=== PATIENT | male | born 1940 | race Caucasian/White ===

== ENCOUNTER 2019-08-03 10:21 | Observation (INO) ==
--- NOTE | 2019-08-03 11:46 | ED.PDOC ---
General ED Provider: Dr. RAVIN LEY Chief Complaint: Fall Stated Complaint: Lost balance and fell in the floor. Was there for approx. 4 hrs before caregiver arrived Denies complaints of hip or back pain Is thirsty Time Seen by Physician: 11:35 Mode of Arrival: Stretcher Information Source: Patient and EMT Exam Limitations: Clinical condition Primary Care Provider: LENY LAMA Nursing and Triage Documentation Reviewed and Agree: Yes Does patient meet sepsis criteria?: No System Inflammatory Response Syndrome: Not Applicable Sepsis Protocol: For patient's 13 years and over: Temp is 96.8 and below OR 101 and greater Pulse >90 BPM Resp >20/minute Acutely Altered Mental Status Are patient's symptoms suggestive of a new infection, such as: -Pneumonia -Skin, Soft Tissue -Endocarditis -UTI -Bone, Joint Infection -Implantable Device -Acute Abdominal Infection -Wound Infection -Meningitis -Blood Stream Catheter Infection -Unknown Miscellaneous Complaint Exam Physical Examination Complaint/Exam Onset/Duration: 4 hr Symptoms Are: Still present Timing: Constant Episodes Lasting: Hours Initial Severity: Moderate Current Severity: Moderate Location: Renal functon diminished with dehydration/Falling and weak Character: Decr LOC Aggravating: Prolonged down time Alleviating: IV fluids Associated Signs and Symptoms: Dry Skin/decr LOC Differential Diagnoses: Renal Insufficiency.Dehydration Review of Systems Review Of Systems Constitutional: Reports Weakness Eyes: Reports No symptoms Ears, Nose, Mouth, Throat: Reports No symptoms Respiratory: Reports No symptoms Cardiac: Reports No symptoms GI: Reports No symptoms : Reports No symptoms Musculoskeletal: Reports Back pain Skin: Reports No symptoms Neurological: Reports Depressed Endocrine: Reports No symptoms Hematologic/Lymphatic: Reports No symptoms All Other Systems: Reviewed and Negative [facility] Medical History (Updated 08/03/19 @ 16:47 by PINEDA DAVIS RN) Bronchitis (Acute) Congestive heart disease (Acute) History of coronary artery bypass graft (Acute) Hypertension (Acute) Lumbar disc disease (Acute) Pneumonia (Acute) Pneumothorax (Acute) Family History (Updated 08/03/19 @ 16:33 by PIENDA DAVIS RN) Father Cancer of bone Diabetes Mother Diabetes Brother Cancer Social History (Updated 08/03/19 @ 16:41 by PINEDA DAVIS RN) Do you feel safe at home: Yes History of physical abuse: No History of emotional abuse: No History of sexual abuse: No Smoking and tobacco status: Current some day smoker Tobacco type: cigarettes Years smoked: 61 Tobacco: How many years used: 61 (stopped smoking a week ago) Smoking status stop date: 07/27/19 Quit status: has quit before Alcohol intake: former Substance use type: does not use Special olive needs: No Are you now , , , , never or living with a partner?: Social isolation score (0-1 are the most socially isolated patients): 0 Household members: none Housing: apartment Marital status: D Lives independently: Yes Highest education level completed: some college, no degree service: No intermediate: No Current occupational status: retired Pets and animals: No History of recent travel: No Current gender identity: male Physical Exam Physical Exam Appearance: Ill-appearing Critical Care Note Critical Care Note Total Time (mins): 60 Course Course Hematology/Chemistry: 08/03/19 12:50 08/03/19 12:50 Orders, Labs, Meds: Lab Review 08/03/19 08/03/19 08/03/19 11:51 12:50 12:50 WBC 14.92 H RBC 4.71 Hgb 14.1 Hct 41.4 L MCV 87.9 MCH 29.9 MCHC 34.1 RDW Coeff of Kellie 13.7 Plt Count 274 Immature Gran % (Auto) 0.7 Neut % (Auto) 81.2 Lymph % (Auto) 8.3 L [place] % (Auto) 9.0 Eos % (Auto) 0.4 Baso % (Auto) 0.4 Immature Gran # (Auto) 0.1 Neut # (Auto) 12.1 H Lymph # (Auto) 1.2 [place] # (Auto) 1.4 Eos # (Auto) 0.1 Baso # (Auto) 0.1 PT INR Puncture Site R brach O2 Saturation 96.0 ABG pH 7.429 ABG pCO2 37.8 ABG pO2 81.0 L ABG HCO3 25 ABG Total CO2 26 ABG Base Excess 1 Sameer Test + O2 Delivery Device Ra FiO2 % 21.0 Sodium 136.6 Potassium 3.61 Chloride 101.1 Carbon Dioxide 26.9 Anion Gap 12.21 BUN 29.1 H Creatinine 1.88 H Estimated GFR (MDRD) 35.00 BUN/Creatinine Ratio 15.47 Glucose 116.6 H Lactic Acid Uric Acid 6.76 Calcium 9.20 Total Bilirubin 0.66 AST 41.0 ALT 16.7 Alkaline Phosphatase 78.0 Total Creatine Kinase 325.5 H CK-MB (CK-2) 2.840 H CK-MB (CK-2) % 0.8700 Troponin I 0.035 NT-Pro-B Natriuret Pep Total Protein 7.42 Albumin 4.18 Globulin 3.24 Albumin/Globulin Ratio 1.[address] [facility] 08/03/19 08/03/19 08/03/19 12:50 12:50 12:50 WBC RBC Hgb Hct MCV MCH MCHC RDW Coeff of Kellie Plt Count Immature Gran % (Auto) Neut % (Auto) Lymph % (Auto) [place] % (Auto) Eos % (Auto) Baso % (Auto) Immature Gran # (Auto) Neut # (Auto) Lymph # (Auto) [place] # (Auto) Eos # (Auto) Baso # (Auto) PT 21.9 H INR 2.34 Puncture Site O2 Saturation ABG pH ABG pCO2 ABG pO2 ABG HCO3 ABG Total CO2 ABG Base Excess Sameer Test O2 Delivery Device FiO2 % Sodium Potassium Chloride Carbon Dioxide Anion Gap BUN Creatinine Estimated GFR (MDRD) BUN/Creatinine Ratio Glucose Lactic Acid 0.87 Uric Acid Calcium Total Bilirubin AST ALT Alkaline Phosphatase Total Creatine Kinase CK-MB (CK-2) CK-MB (CK-2) % Troponin I NT-Pro-B Natriuret Pep Total Protein Albumin Globulin Albumin/Globulin Ratio Procalcitonin < 0.05 TSH 08/03/19 12:50 WBC RBC Hgb Hct MCV MCH MCHC RDW Coeff of Kellie Plt Count Immature Gran % (Auto) Neut % (Auto) Lymph % (Auto) [place] % (Auto) Eos % (Auto) Baso % (Auto) Immature Gran # (Auto) Neut # (Auto) Lymph # (Auto) [place] # (Auto) Eos # (Auto) Baso # (Auto) PT INR Puncture Site O2 Saturation ABG pH ABG pCO2 ABG pO2 ABG HCO3 ABG Total CO2 ABG Base Excess Sameer Test O2 Delivery Device FiO2 % Sodium Potassium Chloride Carbon Dioxide Anion Gap BUN Creatinine Estimated GFR (MDRD) BUN/Creatinine Ratio Glucose Lactic Acid Uric Acid 7.00 Calcium Total Bilirubin AST ALT Alkaline Phosphatase Total Creatine Kinase CK-MB (CK-2) CK-MB (CK-2) % Troponin I NT-Pro-B Natriuret Pep Pending Total Protein Albumin Globulin Albumin/Globulin Ratio Procalcitonin TSH 2.100 Orders Category Date Time Status [facility] ADMISSION 08/03/19 15:21 Active ABG DRAW REQUEST Routine CARDIO 08/03/19 11:52 Completed EKG-(ED ONLY) Stat CARDIO 08/03/19 11:06 Completed OXYGEN Routine CARDIO 08/03/19 11:50 Active TELEMETRY MONITORING TELE CARE 08/03/19 15:22 Active ABG Stat LAB 08/03/19 11:51 Completed BLOOD CULTURE (ED ONLY) Stat LAB 08/03/19 12:40 Received CBC W/ AUTO DIFF Stat LAB 08/03/19 12:50 Completed CMP [COMPREHENSIVE METABOLIC PANEL] Stat LAB 08/03/19 12:50 Completed CPK [CREATINE KINASE] Stat LAB 08/03/19 12:50 Completed LACTIC ACID Stat LAB 08/03/19 12:50 Completed PROCALCITONIN Stat LAB 08/03/19 12:50 Completed PT WITH INR Stat LAB 08/03/19 12:50 Completed TROPONIN I Stat LAB 08/03/19 12:50 Completed UA [URINALYSIS C & S IF INDICATED] Stat LAB 08/03/19 11:52 Uncollected URIC ACID Stat LAB 08/03/19 12:50 Completed URINALYSIS C & S IF INDICATED Stat LAB 08/03/19 13:46 Uncollected 0.9 % Sodium Chloride [Saline Flush] MEDS 08/03/19 11:50 Active 1 syr IVF PRN PRN Sodium Chloride 0.9% [Sodium Chloride] 1,000 ml MEDS 08/03/19 13:27 Discontinued IV ONCE CHEST, 1V AP ONLY Stat RADS 08/03/19 11:51 Completed Medications Generic Name Dose Route Start Last Admin Trade Name Freq PRN Reason Stop Dose Admin Aspirin 81 mg 08/04/19 08:00 Aspirin Ec PO DAILYWM [facility] Citalopram Hydrobromide 20 mg 08/04/19 09:00 Celexa PO DAILY [facility] Ergocalciferol 50,000 unit 08/10/19 09:00 Drisdol PO WEEKLY MONICA Furosemide 40 mg 08/04/19 09:00 Lasix Tab PO DAILY [facility] Potassium Chloride/Sodium Chloride 1,000 mls @ 100 mls/hr 08/03/19 21:30 Sodium Chloride 0.45%-Kcl 20 Meq IV .Q10H [facility] Metoprolol Tartrate 25 mg 08/04/19 09:00 Lopressor PO BID [facility] Non-Formulary Medication 20 mg 08/03/19 22:00 Olanzapine [Zyprexa Zydis] PO BEDTIME MONICA Sodium Chloride 1 syr 08/03/19 11:50 Saline Flush IVF PRN PRN To flush IV Warfarin Sodium 3 mg 08/04/19 21:44 Coumadin PO MOWEFR MONICA Warfarin Sodium 3.5 mg 08/03/19 22:00 Coumadin PO SUTUTHSA MONICA Discontinued Medications Generic Name Dose Route Start Last Admin Trade Name Freq PRN Reason Stop Dose Admin Sodium Chloride 1,000 mls @ 125 mls/hr 08/03/19 13:27 08/03/19 14:48 Sodium Chloride IV 08/03/19 21:26 125 mls/hr ONCE ONE Administration Vital Signs: Temp Pulse Resp BP Pulse Ox 08/03/19 13:27 68 16 139/78 08/03/19 11:52 66 16 110/79 08/03/19 11:45 74 16 67/49 L 08/03/19 10:22 96.9 F L 95 H 20 88/62 L 100 Discharge Plan Discharge Patient Disposition: ADMITTED INPATIENT Discharge Problem: Rhabdomyolysis, Chronic kidney disease ED Provider: RAVIN LEY Discharge Date/Time: 08/03/19 16:01
[2019-08-03] MEDS ORDERED: SODIUM CHLORIDE 1,000 ML IV ONE (13:27)
--- NOTE | 2019-08-03 13:54 | DI ---
EXAM: Chest one view HISTORY: Low blood pressure, fall COMPARISON: 06/06/2016 TECHNIQUE: Single view of the chest was performed FINDINGS: No airspace consolidation. Granulomatous calcification. There is no pleural effusion or pneumothorax. The heart is normal in size. The mediastinal contour is normal. Median sternotomy wi res. There are no acute abnormalities of the bones. IMPRESSION: No acute cardiopulmonary process.
[2019-08-03 17:21] VITALS: BMI 22.6
[2019-08-03] MEDS ORDERED: OLANZAPINE 20 MG PO SCH (22:00)
[2019-08-03] MEDS ORDERED: COUMADIN PO SCH (22:00)
[2019-08-03] MEDS: SODIUM CHLORIDE 0.45%-KCL 20 MEQ 1,000 ML IV SCH (22:25)
[2019-08-04] MEDS: ASPIRIN EC PO SCH (07:48)
[2019-08-04] MEDS: LASIX TAB PO SCH (07:49)
[2019-08-04] MEDS: LOPRESSOR PO SCH ×2 (08:05→20:30)
[2019-08-04] MEDS: CELEXA PO SCH (08:06)
[2019-08-04] MEDS: SODIUM CHLORIDE 0.45%-KCL 20 MEQ 1,000 ML IV SCH ×2 (08:51→18:55)
[2019-08-04] MEDS ORDERED: LASIX TAB PO SCH (09:00)
--- NOTE | 2019-08-04 10:49 | RS.PTINEVL ---
Subjective - Patient information Date of Evaluation: 08/04/19 Date of Arrival on Unit: 08/03/19 Admitted From:: Home Diagnosis: rhabdomyolysis, chronic kidney disease Usual Living Arrangement: Alone Living Arrangement Comments: pt lives alone, has [facility] [employer] agency to assist with some homemaking. Home Environment: Apartment, Level/No stairs Medical History: Hypertension, CHF Medical History Comments:: lumbar disc disease, pneumonia, [place], bronchitis, bipolar, LATEX ALLERGY?: No Surgical History: CABG Medications: see chart Subjective Information/ Patient Comments:: pt states that he doesn't know if he can walk. States he feels very weak. - Level of function Prior to this admission, the patient could do the following:: Independent ADL's, Independent Ambulation Current Level of Function: Partially Dependent Current Equipment Used at Home: cane Interventions - Objective Patient Orientation: Person, Place Current Interventions: IV's, Oxygen, Telemetry Observation: pt with erythema and scaly skin BLE with edema BLE Range of Motion - ROM Right Upper Extremity AROM: WFL's Left Upper Extremity AROM: WFL's Right Lower Extremity AROM: Moderate limitation (decreased knee ext due to knee flex contracture.) Left Lower Extremity AROM: Moderate limitation Muscle Strength - Muscle Strength Right Upper Extremity Strength: Mild Weakness (shld flex 3+/5, elbow flex/ext 4/5, decreased day care worker) Left Upper Extremity Strength: Mild Weakness (shld flex 3+/5, elbow flex/ext 4/5, decreased day care worker) Right Lower Extremity Strength: Mild Weakness (hip flex 3/5, knee flex 4/5, ext 3-/5, ankle DF/PF 4/5) Left Lower Extremity Strength: Mild Weakness (hip flex 3/5, knee flex 4/5, ext 3-/5, ankle DF/PF 4/5) Sensation - Sensation Right Upper Extremity Sensation: Intact/Normal Left Upper Extremity Sensation: Intact/Normal Right Lower Extremity Sensation: Intact/Normal Left Lower Extremity Sensation: Intact/Normal Palpation Palpation Findings: Tenderness (BLE) Balance - Sitting Balance and Reactions Static Sitting Balance: Good Dynamic Sitting Balance: Fair - Standing Balance and Reactions Static Standing Balance: Poor Dynamic Standing Balance: Poor Standing Equilibrium Reactions: Delayed Left, Delayed Right Standing Protective Reactions: Delayed Left, Delayed Right Functional Mobility - Bed Mobility Rolling R/L: Supervision Supine to Sit: Supervision (with bedrails) - Transfers Sit to Stand: CGA Stand to Sit: CGA - Safety Awareness Safety Awareness: Poor FROILAN INDEX SCORE: n/a Ambulation - Ambulation Assistive Device Used: Rolling Walker Orthotic/Prosthetic Device: No Distance: 10ft Assistance needed with Ambulation: CGA, Min Assist, 1 person assist, 2 person assist Quality of Ambulation: pt amb with CGA to min x 1 +1 for IV and O2 Gait Deviations: Forward posture, Short stride Ambulation Comments: pt am with flexed knees. Factors Affecting Ambulation: Decreased Balance, Breathing/O2 Saturation, Weakness, Decreased Safety, Cognitive Status, Limited Endurance Treatment time - Time with patient Length of Evaluation: 21 Total treatment time: 26 Patient Education - Education Patient Education: Home Exercise Program, Education of Plan of Care Teaching Recipient: Patient Teaching Methods: Discussion (discussion regarding HEP) Assessment - Assessment Problem List:: Decreased level of function, Requires training/education, Decreased safety/Risk of falls, Weakness, Cognitive status limits abilities Rehab Potential: Good Further Therapy Indicated?: Yes Candidate for Swing Bed for Therapy Services?: Would need to reassess regarding swing bed closer to [place]. Evaluation Complexity: HISTORY: Medium, EXAM OF BODY SYSTEMS: Medium, CLINICAL PRESENTATION: Medium, CLINICAL DECISION MAKING: Medium Short Term Goals GOAL #1: pt demonstrate rolling and bridging independently Goal to be met by: 08/07/19 GOAL #2: Transfer sup to/from sit independently without bedrails Goal to be met by: 08/07/19 GOAL #3: Sit to/from stand SBA Goal to be met by: 08/07/19 GOAL #4: pt amb with rwx 50ft with CGA with no LOB Goal to be met by: 08/07/19 GOAL #5: pt able to perform standing reaching across midline w no LOB Goal to be met by: 08/07/19 Non Destructive Evaluation Manager Goals GOAL #1: pt transfer sit to/from stand independently Goal to be met by: 08/10/19 GOAL #2: pt amb with AAD functional household distances independently Goal to be met by: 08/10/19 GOAL #3: Improve BLE strength 4- to 4/5 Goal to be met by: 08/10/19 Plan Plan of Care: Therapeutic EX, Therapeutic Activity Other:: gait training Frequency of Treatment: 1-2 X day, as tolerated Duration of Treatment: 6 days Anticipated Discharge Destination: Home Treatment Diagnosis (ICD 10 Codes): difficulty walking R 26.2. balance impaired R 26.81. risk of falls Z91.81 Has the Physician been added for Co-signature?: Yes
--- NOTE | 2019-08-04 14:17 | RS.OTINEVL ---
Subjective - Patient information Date of Evaluation: 08/04/19 Date of Arrival on Unit: 08/03/19 Admitted From:: Home Diagnosis: Chronic kidney disease, rhadomyolisis, dehydration PRECAUTIONS: At risk for falls, dizziness. Usual Living Arrangement: Alone Living Arrangement Comments: pt lives alone, has [facility] [employer] agency to assist with some homemaking. Home Environment: Apartment, Level/No stairs Medical History: Hypertension, CHF Medical History Comments:: lumbar disc disease, pneumonia, [place], bronchitis, bipolar, LATEX ALLERGY?: No Surgical History: CABG Surgical History Comments:: CABG 1981, Back surgery 1971, Medications: see chart Subjective Information/ Patient Comments:: "I have help at home. They cook and clean for me." - Level of function Prior to this admission, the patient could do the following:: Independent ADL's, Independent Ambulation Abilities prior to this admission: Pt was living at home alone. Pt reports he had Help at Home with the cleaning, cooking, and shopping. Current Level of Function: Partially Dependent Comments: Pt has a delay in replying to questions. Current Equipment Used at Home: cane Pain Assessment - Pain Pain Score: 3 Pain Location Body Site: Ankle Pain Aggravating Factors: ADL's, Changing Position, Standing, Walking Pain Alleviating Factors: Position Change Interventions - Objective Patient Orientation: Person, Place, Situation Current Interventions: IV's, Oxygen, Telemetry Observation: Pt is weak and has a difficult time with walking and determining how to turn and move to other places. Interventions - ROM Right Upper Extremity AROM: Slight limitation Left Upper Extremity AROM: Slight limitation - Strength Right Upper Extremity Strength: Mild Weakness Left Upper Extremity Strength: Mild Weakness - Sensation Right Upper Extremity Sensation: Intact/Normal Left Upper Extremity Sensation: Intact/Normal Balance - Sitting Balance Static Sitting Balance: Fair Dynamic Sitting Balance: Fair - Standing Balance Static Standing Balance: Fair Dynamic Standing Balance: Fair ADL Skills - Self Feeding Self Feeding: Min Assist - Grooming Grooming: Min Assist - Toilet Management Toileting Management: Min Assist Functional Mobility - Bed Mobility Rolling R/L: Independent Scooting: Independent Supine to Sit: CGA Sit to Supine: CGA - Transfers Sit to Stand: CGA Stand to Sit: Min Assist Stand Pivot Transfers: Min Assist - Ambulation Weight Bearing Status: FWB Assistive Device Used: Rolling Walker Assistance needed with Ambulation: Min Assist, 1 person assist - Safety Awareness Safety Awareness: Good FROILAN INDEX SCORE: . Additional Treatment Performed - Time with patient Length of Evaluation: 20 Total treatment time: 25 Activities Do you enjoy playing games?: No Would you be interested in leaving your room for activities?: No Would you enjoy group activities?: No Do you have difficulty with your vision?: No Patient Education Patient Education: Education of diagnosis, Education of Plan of Care Teaching Recipient: Patient Teaching Methods: Discussion Assessment Problem List:: Decreased level of function, Requires training/education, Decreased safety/Risk of falls, Weakness Rehab Potential: Good Further Therapy Indicated?: Yes Evaluation Complexity: HISTORY: Medium, EXAM OF BODY SYSTEMS: Medium, CLINICAL DECISION MAKING: Medium Short Term Goals - Goals GOAL 1: Pt to complete sink level ADLS CGA. Goal to be met by: 08/06/19 GOAL 2: Pt to tolerate 15 minutes of standing activity with RW. Goal to be met by: 08/09/19 GOAL 3: Pt to increase dyn. std. bal. to fair+. Goal to be met by: 08/09/19 Halfway Goals GOAL 1: Pt to be Mod-I with self cares. Goal to be met by: 08/10/19 GOAL 2: Pt to increase activity tolerance to 20 minutes. Goal to be met by: 08/11/19 GOAL 3: Pt to increase dyn. std. bal. to Good-. Goal to be met by: 08/11/19 Plan Plan of Care: Therapeutic EX, Therapeutic Activity, Self-Care/Home Management Frequency of Treatment: 1-2 X day, as tolerated Duration of Treatment: 1 Week Anticipated Discharge Destination: Home Treatment Diagnosis (ICD 10 Codes): M62.81 Muscle weakness Has the Physician been added for Co-signature?: Yes
[2019-08-04] MEDS: COUMADIN PO SCH (17:09)
[2019-08-04] MEDS: ZYPREXA PO SCH (20:31)
[2019-08-04] MEDS ORDERED: COUMADIN PO SCH (21:44)
[2019-08-05] MEDS: SODIUM CHLORIDE 0.45%-KCL 20 MEQ 1,000 ML IV SCH ×3 (03:58→23:31)
[2019-08-05] MEDS: LASIX TAB PO SCH (05:53)
--- NOTE | 2019-08-05 08:48 | HP ---
DATE OF SERVICE: 08/03/19 HISTORY OF PRESENT ILLNESS: 79-year-old male who was brought to the emergency room by ambulance. The caregiver went to the house and the door was locked so it had to be opened by the officers. He was found to be in the floor and this patient did tell me that he was in the kitchen, felt dizzy and fell to the floor. The history indicated that he had been in the floor for abour four hours. I asked him about any pain tonight and he told me that he had some soreness in the ankle but there is no swelling, no redness, no deformity and no remarkable tenderness. He is able to answer questions. He has movement of all extremities. He looks older than his chronological age. He was cooperative. Affect is flat. Pupils are about 3 mm in size and reactive. Face is symmetrical and equal with no facial weakness and no tenderness in the frontal or maxillary sinus areas. Neck no bruit. No rigidity. Lungs - breath sounds are heard on both sides. No rales or wheezing. Heart is audible and regular. Abdomen is soft with no significant tenderness. No muscular guarding. Bowel sounds are active. No bruit. Lower extremities - skin is scaly and dry with some redness but no significant edema. The posterior tibial pulse is diminished in volume. I could not find the anterior tibials and will again try to do it tomorrow. The patient's vital signs on the floor showed a blood pressure of 107/56, pulse 83, respiratory rate 16, temperature 97.1, oxygen saturation 97 on room air. The patient has a scar in the median portion of the sternum from bypass surgery. This patient had moderate anemia for a few years until today. Hemoglobin ranged from 9.2 to 11.9 from 2016 until today. BUN today is 29.1, creatinine 1.88, EGFR 35. Last EGFR on record at this facility was 06/06/16, was 67. BUN 21, creatinine 1.08. This patient had previous elevations of BNP back in 2016. I did talk to the son Natan gramajo, at 8:55 p.m. He told me that his father had not been taking his bipolar medications and he filled the medication today and gave the medication to him. The father also claimed that he had not been sleeping for the last four days and it is probably because he didn't have the medications. He did tell me that [facility] use to give him a weekly medication but that had been discontinued. The son mentioned that his father had been out of medication for three weeks. He also mentioned that he had three heart bypasses but I could not get the dates. Back in 2014, the patient only mentioned one heart bypass done in 2001. Need to reconcile all these histories including his medications. The list doesn't seem to agree with [facility]. I asked the son whether his father had another source of medication meaning pharmacy source and the son told me that he gets his medication only from [facility]. He asked me about calling Dr. Gilman who is now taking care of him since Dr. Stroud is no longer at that clinic and I told him that I would like to get the list of his medications at home and then would reconcile that with [facility] and then call Dr. Gilman's office. When he told me that he could not bring the medication until 5, I did tell the nurse rox to call Dr. Gilman's office and get the list of the medications that he is supposed to take. I also mentioned to his son, Mr. Natan Soni about post hospitalization residence. I do think that if he goes home and does not have anybody else there 24 hours a day that he may need another place of residence either assisted living or in the halfway where his medications can be given regularly although being in the halfway does not prevent him from falling but at least somebody will be there to immediately send him for care if that happens. The patient based upon the history today had been in the floor for four hours since he was not able to get him upright and go back to bed or sit down. TIME SPENT: GREATER THAN 65 MINUTES MTDD
[2019-08-05] MEDS: LOPRESSOR PO SCH ×2 (08:49→20:48)
[2019-08-05] MEDS: CELEXA PO SCH (08:49)
[2019-08-05] MEDS: ASPIRIN EC PO SCH (08:49)
--- NOTE | 2019-08-05 08:53 | PN ---
DATE OF SERVICE: 08/03/19 HISTORY: 79-year-old male who was brought to the emergency room by ambulance. The caregiver went to the house and the door was locked so it had to be opened by the officers. He was found to be in the floor and this patient did tell me that he was in the kitchen, felt dizzy and fell to the floor. The history indicated that he had been in the floor for about four hours. I asked him about any pain tonight and he told me that he had some soreness in the ankle but there is no swelling, no redness, no deformity and no remarkable tenderness. He is able to answer questions. He has movement of all extremities. He looks older than his chronological age. He was cooperative. Affect is flat. Pupils are about 3 mm in size and reactive. Face is symmetrical and equal with no facial weakness and no tenderness in the frontal or maxillary sinus areas. Neck no bruit. No rigidity. Lungs - breath sounds are heard on both sides. No rales or wheezing. Heart is audible and regular. Abdomen is soft with no significant tenderness. No muscular guarding. Bowel sounds are active. No bruit. Lower extremities - skin is scaly and dry with some redness but no significant edema. The posterior tibial pulse is diminished in volume. I could not find the anterior tibials and will again try to do it tomorrow. The patient's vital signs on the floor showed a blood pressure of 107/56, pulse 83, respiratory rate 16, temperature 97.1, oxygen saturation 97 on room air. The patient has a scar in the median portion of the sternum from bypass surgery. This patient had moderate anemia for a few years until today. Hemoglobin ranged from 9.2 to 11.9 from 2016 until today. BUN today is 29.1, creatinine 1.88, EGFR 35. Last EGFR on record at this facility was 06/06/16, was 67. BUN 21, creatinine 1.08. This patient had previous elevations of BNP back in 2016. I did talk to the son Natan gramajo, at 8:55 p.m. He told me that his father had not been taking his bipolar medications and he filled the medication today and gave the medication to him. The father also claimed that he had not been sleeping for the last four days and it is probably because he didn't have the medications. He did tell me that [facility] use to give him a weekly medication but that had been discontinued. The son mentioned that his father had been out of medication for three weeks. He also mentioned that he had three heart bypasses but I could not get the dates. Back in 2014, the patient only mentioned one heart bypass done in 2001. Need to reconcile all these histories including his medications. The list doesn't seem to agree with [facility]. I asked the son whether his father had another source of medication meaning pharmacy source and the son told me that he gets his medication only from [facility]. He asked me about calling Dr. Gilman who is now taking care of him since Dr. Stroud is no longer at that clinic and I told him that I would like to get the list of his medications at home and then would reconcile that with [facility] and then call Dr. Gilman's office. When he told me that he could not bring the medication until 5, I did tell the nurse rox to call Dr. Gilman's office and get the list of the medications that he is supposed to take. I also mentioned to his son, Mr. Natan Soni about post hospitalization residence. I do think that if he goes home and does not have anybody else there 24 hours a day that he may need another place of residence either assisted living or in the assisted where his medications can be given regularly although being in the assisted does not prevent him from falling but at least somebody will be there to immediately send him for care if that happens. The patient based upon the history today had been in the floor for four hours since he was not able to get him upright and go back to bed or sit down. EMILIO
[2019-08-05] MEDS ORDERED: COUMADIN PO SCH (17:00)
[2019-08-05] MEDS: COUMADIN PO SCH ×2 (17:02→17:03)
[2019-08-05] MEDS: ZYPREXA PO SCH (20:48)
[2019-08-06] MEDS: LASIX TAB PO SCH (05:51)
[2019-08-06] MEDS: LOPRESSOR PO SCH ×2 (08:43→20:41)
[2019-08-06] MEDS: ASPIRIN EC PO SCH (08:43)
[2019-08-06] MEDS: CELEXA PO SCH (08:43)
[2019-08-06] MEDS: SODIUM CHLORIDE 0.45%-KCL 20 MEQ 1,000 ML IV SCH ×2 (08:46→20:41)
--- NOTE | 2019-08-06 09:58 | HP ---
DATE OF SERVICE: 08/03/19 CHIEF COMPLAINT: Fall, weakness, thirsty. HISTORY OF PRESENT ILLNESS: Mr. Soni is a pleasant 79-year-old patient, previously of Dr. Stroud, who is now going to be a patient of Dr. Crowder. He had lost his balance he tells me and he fell in the floor. He was not able to get up because he was so weak. He was there for approximately four hours before a caregiver arrived and found him on the floor. He denied any injury or pain anywhere. Denied any hip or back pain. He did complain of feeling very thirsty. He was admitted for renal insufficiency, dehydration and decreased level of consciousness. Per review of medical history, he does have a history of congestive heart failure as well as coronary artery bypass grafting. On admission, his GFR was 35, creatinine 1.88 and his BUN was 29.1. His total CK was elevated at 325.5 and his CK-MB was elevated at 2.840. His troponin was negative at 0.035. His BNP was elevated at 1810. Procalcitonin was negative and his lactic acid was negative. His white blood cell count was elevated at 14.92 and his chest x-ray was negative. He was initiated on IV fluids in the Emergency Department. Decision was made to admit the patient as inpatient. PAST MEDICAL HISTORY: As outlined above. He also has lumbar disk disease, coronary artery bypass grafting as mentioned above, coronary artery disease, pneumonia, bronchitis, pneumothorax, congestive heart failure, hypertension. I did speak with a nurse and there are past medical history records that indicate he has a history of bipolar and possible schizophrenia. PAST SURGICAL HISTORY: Lumbar diskectomy, coronary artery bypass grafting. FAMILY HISTORY: Includes father with bone cancer and diabetes, mother with diabetes, brother with cancer. SOCIAL HISTORY: He is a current everyday smoker for the past 61 years. He stopped smoking approximately one week ago. Alcohol use - he is a former alcohol user. He currently does not use alcohol. He denies any substance abuse. MEDICATIONS: (HOME) Aspirin 81 mg daily with meals Celexa 20 mg daily Vitamin D2 50,000 units weekly Lasix 20 mg twice a day Metoprolol Tartrate 25 mg twice a day Zyprexa Zydis 20 mg daily Protonix 40 mg daily Warfarin 3 mg p.o. Friday and Friday Warfarin 3.5 mg Friday, Friday, and Friday (I am unsure exactly why he takes the Warfarin, will need to investigate that further) ALLERGIES: PENICILLIN. REVIEW OF SYSTEMS: CONSTITUTIONAL: No reports of fever, chills, or nightsweats. Unsure about any weight changes. HEENT: Denies any headache, nasal drainage, sore throat or blurring of vision. . CARDIOVASCULAR: No reports of chest pain or irregular rhythm. No orthopnea or peripheral edema. He does have a history of congestive heart failure. RESPIRATORY: No complaints of any shortness of breath. Denies any cough or congestion. No lung disease. GASTROINTESTINAL: No reports of abdominal pain, nausea, vomiting or diarrhea. Denies constipation or changes in stool consistency.. GENITOURINARY: No reports of dysuria, UTI symptoms, hematuria or nocturia. MUSCULOSKELETAL: He does complain of diffuse muscle weakness. He did have a fall which brought him to the Emergency Department. No reports of any joint redness or swelling. NEUROLOGIC: Denies any complaints of dizziness. Does complain of fatigue. PSYCHIATRIC: Per review of ER records, it did report that he had a depressed mood when he came to the Emergency Department. There is concern that he has a history of schizophrenia and bipolar. He does have a very flat affect when you talk to him. ENDOCRINE: No reports of diabetes mellitus or thyroid disease. INTEGUMENT: No reports of any rashes, lesions, skin changes or issues. PHYSICAL EXAMINATION: GENERAL: He is alert, oriented. He is very weak. VITAL SIGNS: On admission temperature 96.9, pulse rate 95, blood pressure low at 88/62, respiratory rate 20, 02 sat 100%. Weight 160 lbs. He is 5'9". HEENT: Head normocephalic, atraumatic. Pupils equal/reactive to light. Conjunctivae clear. Mucous membranes are moist. NECK: Supple. No lymphadenopathy or thyromegaly. No carotid bruits auscultated. CARDIOVASCULAR: S1, S2 regular rate and rhythm. He does have minimal lower extremity edema. His lower extremities are very dry. His peripheral pulses are weak. LUNGS: Clear, no respiratory distress. He does have decreased breath sounds. ABDOMEN: Soft. Bowel sounds are positive. NEUROLOGIC: Cranial nerves 2-12 grossly intact. He is a bit slow to respond. SKIN: Warm and dry. He does have lower extremity dryness. No wounds noted. LABS AND DIAGNOSTIC TESTING: As mentioned above in the HPI. He was not anemic on admission. His hemoglobin is 14.1, hematocrit 41.4. White blood cell count was 14.92. Platelet count normal at 274. His INR was 2.34, p02 was 81.0. As mentioned in the HPI his BUN 29.1, creatinine 1.88, GFR 35, electrolytes were normal. His total CK was 325.5, CK-MB 2.840. His CK-MB percentage was 0.870. His NT-Pro-BNP was 1810. I am unsure exactly what his baseline NT-Pro-BNP is. I did look back to 2017. Procalcitonin negative as well as his lactic acid. His TSH was normal at 2.10. UA showed trace glucose, 2+ blood otherwise negative. ASSESSMENT: 1. RHABDOMYOLYSIS. 2. CHRONIC KIDNEY DISEASE STAGE 3 WITH RENAL INSUFFICIENCY. 3. FALL AND WEAKNESS. 4. DECREASED LEVEL OF CONSCIOUSNESS. 5. DEHYDRATION. 6. CHRONIC SYSTOLIC HEART FAILURE. 7. VITAMIN D DEFICIENCY. 8. HISTORY OF ASYMPTOMATIC HYPERURICEMIA. 9. HISTORY OF HYPERTENSIVE NEPHROPATHY. 10. HISTORY OF HYPERTENSION. 11. HISTORY OF CORONARY ARTERY BYPASS GRAFTING. 12. HISTORY OF LUMBAR DISK DISEASE. 13. HISTORY OF BIPOLAR AND POSSIBLE SCHIZOPHRENIA WITH DEPRESSIVE SYMPTOMS. 14. HISTORY OF TOBACCO USE AND FORMER ALCOHOL USE. PLAN: 1. Continue IV fluids. 2. Monitor renal status. 3. Order physical therapy for this patient who is very weak. 4. Home medicines have been ordered. 5. Telemetry has been ordered. 6. Further lab monitoring has also been ordered. 7. Further orders and recommendations per Dr. Sargent. TIME SPENT: GREATER THAN 65 MINUTES MTDD
[2019-08-06] MEDS: COUMADIN PO SCH (16:49)
[2019-08-06] MEDS: ZYPREXA PO SCH (20:41)
[2019-08-07] MEDS: LASIX TAB PO SCH (06:24)
[2019-08-07] MEDS: SODIUM CHLORIDE 0.45%-KCL 20 MEQ 1,000 ML IV SCH ×2 (06:41→16:16)
[2019-08-07] MEDS: LOPRESSOR PO SCH ×2 (08:41→20:28)
[2019-08-07] MEDS: ASPIRIN EC PO SCH (08:41)
[2019-08-07] MEDS: CELEXA PO SCH (08:42)
[2019-08-07] MEDS: COUMADIN PO SCH ×2 (16:15)
[2019-08-07] MEDS ORDERED: CARDIZEM PO ONE (19:59)
[2019-08-07] MEDS: ZYPREXA PO SCH (20:28)
[2019-08-07 21:42] VITALS: BP 118/76; TEMP 99
[2019-08-07] MEDS ORDERED: POTASSIUM CHLORIDE IV SCH (23:30)
[2019-08-07] MEDS ORDERED: INFUVITE ADULT IV SCH (23:30)
[2019-08-07] MEDS ORDERED: [UNRECOGNIZED DRUG - OTHER] IV SCH (23:30)
[2019-08-07] MEDS ORDERED: ADDITIVE ONLY IV SCH (23:30)
[2019-08-08] MEDS ORDERED: CARDIZEM PO SCH (05:00)
--- NOTE | 2019-08-09 11:36 | DS ---
DATE OF SERVICE: 08/08/19 FINAL DIAGNOSES: 1. Non ST-T segment [place] 2. Coronary artery disease status post bypass, triple 2001 3. Bipolar disorder with depressive component, on medication Zyprexa 20mg daily and Prozac 4. Chronic kidney disease stage 3 under the care of Dr. Peoples, maintenance service supervisor 5. History of chronic alcohol abuse, stopped 6 months ago 6. Chronic tobacco use and abuse stopped 10 days ago 7. History of CHF 8. History of pneumothorax 9. History of hypertension 10.History of lumbar disc disease 11.History of lumbar disc surgery 12.Family history of diabetes involving mother and father BRIEF HISTORY OF PRESENT ILLNESS/HOSPITAL COURSE: 79 year old male who resides alone in his apartment. He does have a caregiver that comes and sees him everyday. The day that he was brought to the emergency room the patient door would not open and so the caregiver had to call reenforcement to open the door. The patient was found to be in the floor. He told me that he was in the kitchen and felt dizzy and then fell to the floor and was in the floor for about 4 hours. The patient denies any pain any place else except for slight soreness of the left ankle. Examination of the left ankle revealed no contusion, deformity, edema or any signs of injury. Emergency room physician felt that he needed admission with diagnosis rhabdomyolysis and chronic kidney disease stage 3. Further history was obtained from the son, I talked to him. He mentioned that his father had been out of medication for the last 3 weeks from depression probably from the bipolar and was unable to get the listed medications straight. I did ask him to bring all his medications in bottles so we can identify it. Claimed that the medications were refilled and the patient resumed the medication the day before. Abnormal labs at the emergency room on 08/03/19 was mild leukocytosis 14,920 WBC. Arterial blood gasses on room air unremarkable. Electrolytes normal, BUN elevated 29.1, creatinine 1.88, EGFR 35. Sugar minimally elevated 116. Total CK 325.5, CK-MB 2.840, slightly elevated Troponin 0.035. Rest the chemistries are unremarkable. PT 21.9 and INR 2.34. This patient is on Coumadin altering 3 and 3.5. Lactic acid and procalcitonin normal. Echocardiogram showed sinus bradycardia 61 per minute, ST-T was abnormality probably inferolateral ischemia. The emergency room physician felt that the patient needs to be in the hospital and admitted him with a diagnosis of Rhabdomyolysis and chronic kidney disease stage 3. No acute kidney injury superimposed. The patient was hydrated and denied any pain any place in his body including chest pain or oppression and denied any shortness of breath or problems swallowing food or abdominal pain. The patient's condition had remained stable until late afternoon of 08/07/19. The patient after 6:00 developed tachycardia rate up to 140. Appeared to be a sinus tachycardia. There is some component of atrial fibrillation. I was notified somewhere beyond 7:00 in the evening and I ordered Cardizem 60mg at that point in time. After that 30mg every 8 hours. At the time of my rounds at about 10:30 in the evening the patient was alert, no distress, nasal oxygen and always had nasal oxygen since admission with no diaphoresis, no dyspnea or tachypnea. No chest pain or oppression. No abdominal pain. The electrocardiogram reflected that tachycardia as well as the ST-T segment abnormality indicated inferior ischemia. It is not remarkably different from admission except for the tachycardia. I did order a troponin as well as a CK and the CK was lower than admission 2.4 and the MB and the Troponin was elevated 0.14. The patient about 11pm vomited and I was notified by the nurse at home. The nurse told me that there were no external symptoms or diaphoresis, pallor, dyspnea, tachypnea or diaphoresis or any abdominal pain but he vomited. I told the nurse that I would come in and I did and examined the patient and the patient was alert, responsive and denied any pain. The nurse told me that the son was coming so I waited for him and he did come to the hospital about 1:44am in the morning. I discussed the case with him and felt that Mr. Soni probably needs to be transferred to another facility with a cardiology capabilities including cardiac catheterization and further. The son wanted him to be transferred to [facility]. In the mean time I asked for the CBC and CMP and another Troponin. I also asked for a Troponin of the blood sample that was obtained 4:40am 08/07/19. The Troponin done at 1:30am is now 0.623 nanograms per mL. The upper normal is 0.120. It is has increased remarkably from the sample at 11:00. It was 0.14 at that time. Troponin was requested again at the 4:40am 08/07/19 and the Troponin was normal. It does not show on the screen. Because of these changes and the cardiac arrhythmia that the patient now is exhibiting I felt that this patient should be transferred and I did talk to [facility] and talked to the doctor who is the hospitalist after talking to the nurse. The doctor did accept the patient to his services. The patient at the time of discharge was alert, responsive with movement of all extremities. The heart is slightly irregular. Lungs have diminished breath sounds with few rales at the bases lowest portion, no wheezing. Abdomen is soft with no remarkable tenderness. This patient had a slightly elevated serum amylase and lipase. The significance the of the slight elevated amylase and lipase is unknown. I did inform also that hospitalist at [facility] that his maintenance service supervisor is Dr. Peoples and his track and field coach is Dr. Mayer. His primary provider is Dr. Crowder at [facility] and doctor previous was Dr. Stroud. He had obtained a record from the office and I sent that record again with the records that we have to the hospitalist MD. PROGNOSIS: Guarded TIME SPENT: GREATER THAN 30 MINUTES MTDD
--- NOTE | 2019-08-09 13:29 | PN ---
DATE OF SERVICE: 08/07/19 SUBJECTIVE: 79 year old admitted to the hospital from the emergency room. The patient today is alert, calm, flat affect is cooperative and answers questions. He does follow verbal commands without any problems. He does reside in an apparent with Caregiver coming to the house daily for a couple of hours. The patient on the day of presentation to the emergency room had a appointment with his family physician in [place], Dr. Crowder. His lungs are clear to auscultation but diminished breath sounds. Heart is audible and regular. Lower extremity has no edema. The scaly areas in both lower extremities is better with the application of the moisturizing cream. The muscles are more or less atrophied in the legs. He is able to walk with a walker with the aid of the physical therapy. I had talked to Dr. Yao a doctor for [facility]. She would approve a total admission. I did talk to her that this patient was brought to the emergency room because he was found in the floor and according to the patient was in the kitchen and had dizziness and feel and was in the floor for about 4 hours. Fortunately there were no obvious fractures in this individual. The emergency room doctor put the diagnosis of Rhabdomyolysis and chronic kidney disease stage 3. I did agree with the physician jayy Denney that this probably does not desire admission however the patient's dizziness and falling to the floor and inability to get up is significant problem that this patient could not be discharged from the facility. Obviously has a very significant problem unable to get up from the floor. I told her that the patient had a diagnosis of bipolar disorder as well as schizophrenia. He had been out of his medication and his son just bought the medications and started him on the medication. I do not know whether the resumption of the medication on the usual dosage that he was taking after being abstained from the medication because he didn't know. The son mentioned that the understanding was that [facility] would fill the medication every week and sent to him. That seemed to have stopped and the consequence the patient did not have the medication to take. I did look at the bottles and indeed there is some discrepancy. The doctor jin Denney agree for the observation status for admission. I also did advise the doctor that we are seeking further residence for the patient at the assisted. I had discussed this with the son initially. I will again will discuss it with the patient as well as the son. Mrs. Landeros the Nurse Coordinator was going to inform him today about the placement in the assisted. He has to go through a more rigorous screening because of his diagnosis of bipolar as well schizophrenia. This patient had not showed any untoward behaviors during this hospitalization to this day. VITAL SIGNS: Temperature 98.2 orally, pulse rate 74, blood pressure 90/60, respiratory rate 14. The blood pressure at 5/15 was 120/70 with a pulse rate of 86. The patient was in the sitting posture. The patient had 91% oxygen saturation at room air and 97 with 2 liters nasal canula. CBC today 10,460, RBC 4,270,000, hgb 12.6, hct 39.6, MCV 92.7, MCH 29.5. The differential unremarkable. Previous today Electrolytes are normal, CO2 normal 28.8, BUN 28, creatinine 1.53, EGFR 44, Glucose 95.9, Calcium normal, liver normal. CURRENT MEDICATIONS: Aspirin 81mg daily Lasix 40mg daily Celexa 20mg daily Lopressor 25mg twice a day Coumadin 3mg, Friday, Friday and Friday. Coumadin 2.5mg Friday, Friday, and Friday. Coumadin 1mg Friday, Friday, and Friday. He is essentially getting 2.5mg on those days. Prescription bottle does not bare the same numbers. We will have to see what the ProTime is before adjusting all his medications. Vitamin D 50,000 international units weekly. We will try to get in touch with the son today and discuss about placement post hospitalization. I left a message for Mr. Soni his number is [phone]. MTDD
[2019-08-10] MEDS ORDERED: DRISDOL PO SCH (09:00)
--- NOTE | 2019-08-10 09:51 | PN ---
DATE OF SERVICE: 08/07/19 SUBJECTIVE: I did see the patient 10:30pm with Mariel, the nurse that was charge of him. I did ask him if he had any pain and he denied any. His heart was mostly regular. The patient early in the evening just beyond 6:00 had some tachycardia reaching as high as 140 according to the nurse. Mariel, the nurse, did call me about 8:00 and discussed the case with me. I did order a Cardizem 60mg initially and 30mg every 8 hours. The patient did receive the 60mg. Lungs had diminished breath sounds. He denied pain anywhere else in his body and he was not dyspneic or tachypneic and diaphoresis. Never did complain of nausea or diaphoresis or chest pain just the sudden changes in the cardiac rhythm. I ordered Troponin as well as CK. The nurse called, Mariel, that the Troponin was slightly elevated 0.142 and I instructed her to obtain a Troponin on the blood that was drawn earlier in the day and the Troponin was normal 0.039. The patient also had vomited. The serum amylase and lipase were slightly elevated but the patient is not complaining of any abdominal pain. The patient's INR is therapeutic. The patient had a previous CT and bypass surgery 2001, triple bypass. This patient is taking Olanzapine 20mg daily a chronic medication and his cardiac rate on admission at the emergency room 08/04/19 was 61. I came back to the hospital at 1:40am 08/08/19. Mariel did tell me that the son is coming to the hospital and I waited for him to decided to do any contact with any physician or hospital. The son came to the hospital about 1:44am. EMILIO
--- NOTE | 2019-08-10 10:33 | PN ---
DATE OF SERVICE: 08/08/19 CONVERSATION WITH SON SUBJECTIVE: Conversation with Mr. Soni's son with regards to the changes. Only change for him is the elevation of the Troponin which was previously normal as well as tachycardia and vomiting at about 11:00 this evening. He denies any pain in the chest or abdomen and anywhere else in his body and the patient never had any diaphoresis. The previous EKG done 08/07/19 at 6:57pm showed a rate of 132, sinus tachycardia, infarct age undetermined, ST-T wave abnormality consider inferior lateral ischemia. EKG repeated 08/07/19 at 23:55 showed atrial fibrillation, septal infarct age undetermined, ST-T wave abnormal consider inferior ischemia. Previous EKG on 08/04/19 sinus rhythm with premature supraventricular complexes left axis deviation and and Septal infarct age undetermined, ST-T wave abnormality, consider inferior lateral ischemia, abnormal EKG. Heart rate was 61 on 08/04/19 and the heart rate now is back down to 61 also. I did talk to the son about these changes and I told him that I would like to transfer him and he chose [facility]. His finance admin is from [facility], Dr. Lara and also see Dr. Peoples. His provider is also from [facility]. I told him that I will get in touch with the Transfer Center at [facility] for now and we will see what they will tell me. Sometime they may not accept the transfer and we will have to go to another hospital and another hospital. I proceeded to call the transfer center at [facility] number [phone]. I did talk to a nurse and give my phone number for contact. I chose to get give my cell phone since it is going to be with me. I also did give the phone number of the hospital as well as the extension in get in touch with the nurse that is in [facility]
--- NOTE | 2019-08-10 10:41 | PN ---
DATE OF SERVICE: 08/08/19 SUBJECTIVE: I did receive a call back from [facility] and I did talk to the hospitalist. I did give him the history of this patient. Also mention to him that his patient is being followed by Dr. Peoples for his chronic kidney disease stage [address] Lara for his cardiac problems. His provider is Dr. Crowder now and previous Dr. Stroud. I did tell him about the history of what happened this evening. I did tell him that the Troponin has risen, it was normal early Friday morning at 4:40 in the morning when the blood was drawn. The Troponin done was a look back, it was not ordered with the rest of the chemistry at that time. The Troponin about 11:00 tonight 08/07/19 was 0.14 and upper normal is below 0.12 and the Troponin done about 2am 08/08/19 is now 0.63-critical level. The patient is stable and denies any chest pain and his skin is warm and he is not dyspneic or tachypneic. His abdomen is soft and nontender. The patient also is on Coumadin taking 3 alternating 3.5 and the INR is 2.48, therapeutic. The hospitalist accepted him to his services. We do not have the final summary since there is no planer operator available at this time. I did ask Mariel to put a chronology of what happened this evening. I did inform the patient that he is going to be transferred to [facility] and that he may need to see his Assistant Golf Professional as well as the son. I also sent the record that we have obtained from Tati during his office visit three months ago. EMILIO
== END 2019-08-08 02:44 | disposition short-term general hospital (02) ==
LOC: ED 10:21 → INTOOBSV 15:24 → SCU 15:24
PROVIDERS: ADMIT General Practice; ATTEND General Practice
DX: I50.22 Chronic systolic (congestive) heart failure; N18.3 Chronic kidney disease, stage 3 (moderate); M62.82 Rhabdomyolysis; E86.0 Dehydration; M54.9 Dorsalgia, unspecified; E55.9 Vitamin D deficiency, unspecified; R53.1 Weakness; F31.9 Bipolar disorder, unspecified; I25.10 Atherosclerotic heart disease of native coronary artery without angina pectoris